=== PATIENT | female | born 1985 ===

== ENCOUNTER 2022-01-27 17:07 | Emergency (ER) | payer OTHER ==
[2022-01-27 18:39] LABS: Bilirubin Negative (Negative); Blood, Urine Trace (Negative); Clarity Clear (Clear); Glucose, Urine (Dipstick) Negative (Negative); Ketone, Urine Negative (Negative); Leukocyte Negative (Negative); Nitrite Negative (Negative); Protein, Urine (Dipstick) Negative (Neg-Trace); Urobilinogen 0.2 mg/dL (Less than 2)
[2022-01-27 18:41] LABS: Pregnancy Test - Urine (BHCG) Negative (Negative); Pregu Control Background? CLEAR/WHITE (CLR/WHITE); Pregu Control Bar Appear? YES (CONTROL BAR)
[2022-01-27 18:46] LABS: RBC/HPF 0-3 HPF (0-3)
[2022-01-27 18:47] LABS: Bacteria/HPF Rare-Few HPF (None Seen); Calcium Oxalate Crystals Rare HPF (None Seen); Mucous/LPF Few LPF (<2+); Squamous Epithelial 0-3 HPF (0-3)
[2022-01-27] MEDS ORDERED: Azithromycin 250 MG TAB ONE (19:04)
[2022-01-27] MEDS ORDERED: Lidocaine 1% PF 5 ML VIAL ONE (19:06)
[2022-01-27] MEDS ORDERED: cefTRIAXone\\ROCEPHIN 500 MG VIAL ONE (19:06)
[2022-01-27] MEDS ORDERED: Fluconazole 100 MG TAB ONE (19:09)
[2022-01-27 19:11] LABS: Wet Prep Clue Cells Clue Cells Absent (None Seen); Wet Prep Trichomonas Trichomonas Absent (None Seen)
[2022-01-29 15:53] LABS: Chlamydia by PCR Not Detected (NotDetected); GC by PCR Not Detected (NotDetected)
== END 2022-01-27 19:23 | disposition home or self-care (01) ==
LOC: MADERS 17:07
DX: B37.3 Candidiasis of vulva and vagina (principal); Z20.2 Contact with and (suspected) exposure to infections with a predominantly sexual mode of transmission; N76.0 Acute vaginitis; F17.290 Nicotine dependence, other tobacco product, uncomplicated
CPT/HCPCS: 81003; 81015; 81025; 87086; 87210; 87480; 87491; 87510; 87591; 87660; 96372; 99283; J0696

== ENCOUNTER 2022-02-15 17:34 | Emergency (ER) | payer OTHER ==
[~2022-02-15 17:34] MED LIST: Iopamidol 370 76% 100 ML VIAL ONE
[2022-02-15 18:12] LABS: Pregnancy Test - Urine (BHCG) Negative (Negative); Pregu Control Background? CLEAR/WHITE (CLR/WHITE); Pregu Control Bar Appear? YES (CONTROL BAR)
[2022-02-15 18:13] LABS: Bilirubin Negative (Negative); Blood, Urine Negative (Negative); Clarity Hazy (Clear); Glucose, Urine (Dipstick) Negative (Negative); Ketone, Urine Negative (Negative); Leukocyte Negative (Negative); Nitrite Negative (Negative); Protein, Urine (Dipstick) Negative (Neg-Trace); Urobilinogen 0.2 mg/dL (Less than 2)
[2022-02-15 19:21] LABS: #Basophils 0.1 thou/uL (0.0-0.2); #Eosinphils 0.1 thou/uL (0.0-0.7); #Lymphocytes 3.5 thou/uL (1.20-3.40); #Monocytes 0.7 thou/uL (0.11-0.59); #Neutrophils 4.6 thou/uL (1.40-6.50); %Basophils 0.8 % (0.0-1.0); %Eosinophils 0.7 % (0.0-10.0); %Lymphocytes 38.8 % (21.0-51.0); %Monocytes 7.5 % (0.0-10.0); %Neutrophils 52.1 % (42.0-75.0); Hemoglobin 13.2 g/dL (12.0-16.0); Mean Corpuscular HGB CONC 33.1 g/dL (32.0-36.0); Mean Corpuscular Volume 93.6 fL (78.0-98.0); Platelet Count 514 thou/uL (130-400); RBC Distribution Width 12.2 % (11.5-14.5); Red Blood Cell (RBC) Count 4.27 mill/uL (4.20-5.40); White Blood Cell (WBC) Count 8.9 thou/uL (4.8-10.8)
[2022-02-15 19:33] LABS: ALT (SGPT) 18 U/L (8-55); AST (SGOT) 23 U/L (5-34); Albumin 3.9 g/dL (3.5-5.0); Alkaline Phosphatase 62 U/L (40-110); Anion Gap 13 mmol/L (10-20); BUN (Urea Nitrogen) 10 mg/dL (7.0-18.7); Bilirubin, Total 0.2 mg/dL (0.2-1.2); Calc. Creatinine Clearance 0 mL/min (70-130); Calcium 9.1 mg/dL (7.8-10.44); Carbon Dioxide 28 mmol/L (22-29); Chloride 104 mmol/L (98-107); Estimated GFR 89; Glucose 87 mg/dL (70-105); Potassium 4.2 mmol/L (3.5-5.1); Protein, Total 6.9 g/dL (6.0-8.3); Sodium 141 mmol/L (136-145)
== END 2022-02-15 20:43 | disposition home or self-care (01) ==
LOC: MADERS 17:34
DX: N76.0 Acute vaginitis (principal); N73.9 Female pelvic inflammatory disease, unspecified; F17.290 Nicotine dependence, other tobacco product, uncomplicated; Z79.899 Other long term (current) drug therapy
CPT/HCPCS: 74177; 80053; 81003; 81025; 85025; 87086; Q9967